=== PATIENT | male | born 2000 | race Caucasian/White ===

== ENCOUNTER 2021-12-11 20:31 | Emergency (ER) | payer OTHER ==
[~2021-12-11] VITALS: Ht 185 cm; Wt 71.7 kg
[2021-12-11] MEDS ORDERED: RT-ALBUTEROL HFA 8.5 GM INHALER IH STA (20:49)
--- NOTE | 2021-12-11 20:49 | ED Cough/URI ---
General Chief Complaint: COVID19 Suspect/Confirmed Stated Complaint: COVID POSITIVE, SOB Source: patient Exam Limitations: no limitations History of Present Illness Date Seen by Provider: Dec 11, 2021 Time Seen by Provider: 20:32 Initial Comments 21-year-old male with no pertinent past medical history coming in being, positive and feeling short of breath. Has had a cough for couple weeks, developed a fever yesterday and has had some Tylenol today at 1 PM. Went to outpatient clinic and had a positive COVID test. Has never been vaccinated for it, has never had COVID before. Denies any vomiting, diarrhea, chest pain, abdominal pain, weakness, numbness, rash, headache, neck stiffness, or any other concerns. Allergies and Home Medications Allergies Coded Allergies: Penicillins (Verified Allergy, Unknown, 12/11/21) cefuroxime (Verified Allergy, Unknown, 12/11/21) Patient Home Medication List Home Medication List Reviewed: Yes Review of Systems Review of Systems Constitutional: fever EENTM: No blurred vision Respiratory: cough, short of breath Cardiovascular: No chest pain Gastrointestinal: No abdominal pain Genitourinary: no symptoms reported Musculoskeletal: no symptoms reported Skin: no symptoms reported Psychiatric/Neurological: No Symptoms Reported Hematologic/Lymphatic: No Symptoms Reported Immunological/Allergic: no symptoms reported All Other Systems Reviewed Negative Unless Noted: Yes Past Wupjroq-Djbqyn-Gnoayz Hx Patient Social History Tobacco Use?: No Past Medical History Surgeries: No Physical Exam Vital Signs - First Documented 12/11/21 20:37 Temp 39.0 Pulse 98 Resp 18 B/P (MAP) 127/73 (91) Pulse Ox 97 O2 Delivery Room Air Capillary Refill : Height: '" Weight: lbs. oz. kg; BMI Method: General Appearance: WD/WN, no apparent distress Eyes: Bilateral Eye Normal Inspection HEENT: PERRL/EOMI, normal ENT inspection, pharynx normal Neck: non-tender, full range of motion, supple, normal inspection Respiratory: chest non-tender, lungs clear, normal breath sounds, no respiratory distress, no accessory muscle use Cardiovascular: regular rate, rhythm, no edema, no murmur Gastrointestinal: normal bowel sounds, non tender, soft; No distended, No guarding, No rebound Extremities: normal range of motion, non-tender, normal inspection, no pedal edema, no calf tenderness, normal capillary refill Neurologic/Psychiatric: no motor/sensory deficits, alert, normal mood/affect Skin: normal color, warm/dry Lymphatic: no adenopathy Progress/Results/Core Measures Suspected Sepsis SIRS Temperature: Pulse: Respiratory Rate: Blood Pressure / Mean: Results/Orders My Orders Orders - ALY CABRERA MD Chest 1 View, Ap/Pa Only (12/11/21 20:45) Ibuprofen Tablet (Motrin Tablet) (12/11/21 21:00) Albuterol Inhaler (Albuterol) (12/11/21 20:49) Vital Signs/I&O 12/11/21 12/11/21 20:37 20:37 Temp 39.0 Pulse 98 Resp 18 B/P (MAP) 127/73 (91) Pulse Ox 97 O2 Delivery Room Air Room Air Capillary Refill : Progress Note : Progress Note 21-year-old male with known COVID coming in short of breath. ABCs were intact and vitals were stable on presentation. I personally ambulated him around the room and his oxygen sat remained around 98%. Lungs were clear and chest x-ray my interpretation with no obvious pneumonia or abnormality. I believe he is stable for discharge with outpatient follow-up. He was sent home with strict return precautions Diagnostic Imaging Diagonstic Imaging: Xray Plain Films/CT/US/NM/MRI: chest Comments [facility], [place] NAME: KENDY PAGAN [facility] REC#: [id number] PT STATUS: REG ER : 2000 PHYSICIAN: ALY CABRERA MD ADMIT DATE: 12/11/21/ER Draft Date of Exam:12/11/21 CHEST 1 VIEW, AP/PA ONLY CLINICAL INDICATION: Patient with cough, shortness of breath and fever. Patient tested positive for Covid today. EXAM: Portable chest x-ray upright view. COMPARISON: None. FINDINGS: Lungs/pleura: Lungs are clear. There is no pneumothorax. There is no pleural effusion. Mediastinum: Unremarkable. Pulmonary vasculature: Unremarkable. Heart: Unremarkable. Bones/extrathoracic soft tissue: Unremarkable. IMPRESSION: There is no radiographic evidence of acute cardiopulmonary process. Dictated on workstation # [id number] Dict: 12/11/212108 Trans: 12/11/212112 [facility] [id number] Interpreted by: ANTONIO GIVENS MD Electronically signed by: Departure Impression Primary Impression: COVID-19 Disposition: 01 HOME, SELF-CARE Condition: Stable Departure-Patient Inst. Decision time for Depature: 21:19 Patient Instructions: COVID-19 Overview Add. Discharge Instructions: Your lungs are clear and you do not have pneumonia. Your oxygen is good here. I recommend buying an oxygen probe sensor that you can get at any pharmacy or on [employer]. If your oxygen is 89% or lower for any extended period of time and you cannot get it to go back up above 90, then I recommend coming back to the ER. You can try using the inhaler, and if it is helping continue to use it. Take ibuprofen and/or Tylenol as needed for fever and body aches Work/School Note: Work Release Form Date Seen in the Emergency Department: Dec 11, 2021 Return to Work: Dec 16, 2021 Restrictions: Return-No Fever (24hrs), Return-No Vomiting(24hrs) ALY CABRERA MD Dec 11, 2021 20:49
[2021-12-11] MEDS ORDERED: IBUPROFEN 600 MG (MOTRIN) TAB PO ONE (21:00)
--- NOTE | 2021-12-11 21:14 | Diagnostic Imaging Report ---
CLINICAL INDICATION: Patient with cough, shortness of breath and fever. Patient tested positive for Covid today. EXAM: Portable chest x-ray upright view. COMPARISON: None. FINDINGS: Lungs/pleura: Lungs are clear. There is no pneumothorax. There is no pleural effusion. Mediastinum: Unremarkable. Pulmonary vasculature: Unremarkable. Heart: Unremarkable. Bones/extrathoracic soft tissue: Unremarkable. IMPRESSION: There is no radiographic evidence of acute cardiopulmonary process. Dictated by: Dictated on workstation # [id number]
[2021-12-11 21:33] VITALS: BP 109/61
== END 2021-12-11 21:25 | disposition home or self-care (01) ==
LOC: ER 20:35
DX: U07.1 COVID-19 (principal); Z73.0 Burn-out; Z28.310 Unvaccinated for COVID-19
CPT/HCPCS: 71045